=== PATIENT | female | born 2000 | race Caucasian/White ===

== ENCOUNTER 2019-02-19 18:51 | Emergency (ER) | payer OTHER ==
--- NOTE | 2019-02-19 18:58 | PDOC ---
Rapid Medical Evaluation Time Seen by Provider: 02/19/19 18:56 Medical Evaluation: 02/19/19 18:56 This patient had a brief in-person evaluation in triage cc: laceration to right hand sustained on a fence 1-3 hours ago. Fell while climbing a fence unknown tetanus status HPI: NAD unlabored breathing laceration to right palm orders: tetanus This patient will proceed to ED for further evaluation. Discharge Disposition - Diagnosis Laceration - Referrals - Patient Instructions - Post Discharge Activity
[2019-02-19 19:00] VITALS: BP 129/83; PULSE 89; TEMP 98.8; BMI 22.7
[2019-02-19] MEDS ORDERED: DIPHTH,PERTUSS(ACELL),TET 0.5 ML DISP.SYRIN IM ONE ×2 (20:15→20:16)
--- NOTE | 2019-02-19 20:39 | PDOC ---
History of Present Illness - General Chief Complaint: Laceration Stated Complaint: LACERATION/R/PALM Time Seen by Provider: 02/19/19 18:56 - History of Present Illness Initial Comments: 02/19/19 20:34 18-year-old female without comorbidities presents for evaluation of a laceration on the palmar aspect of her right hand while climbing a fence earlier today she is not current on tetanus Past History - Past Medical History Allergies/Adverse Reactions: Allergies Allergy/AdvReac Type Severity Reaction Status Date / Time No Known Allergies Allergy Verified 02/19/19 20:08 Home Medications: Ambulatory Orders NK [No Known Home Medication] 02/19/19 COPD: No - Suicide/Smoking/Psychosocial Hx Smoking History: Never smoked Information on smoking cessation initiated: No Hx Alcohol Use: No Drug/Substance Use Hx: No Review of Systems - Review of Systems Musculoskeletal: Yes: See HPI *Physical Exam - Vital Signs Last Vital Signs Temp Pulse Resp BP Pulse Ox 98.8 F 89 19 129/83 100 02/19/19 18:57 02/19/19 18:57 02/19/19 18:57 02/19/19 18:57 02/19/19 18:57 - Physical Exam Comments: 02/19/19 20:35 Proximally a 3 cm obliquely oriented linear laceration on the palmar aspect of the right hand exposing subcutaneous fat. There are no gross sensory motor deficits neurovascular intact ED Treatment Course - Medications Given in the ED: ED Medications Discontinued Medications Generic Name Dose Route Start Last Admin Trade Name Freq PRN Reason Stop Dose Admin Diphtheria/Tetanus/Acell Pertussis 0.5 ml 02/19/19 20:15 02/19/19 20:21 Boostrix - IM 02/19/19 20:16 0.5 ml .ONCE ONE Administration Medical Decision Making - Medical Decision Making 02/19/19 20:36 Aseptic technique the wound was anesthetized with 6 mL of 1% lidocaine without epinephrine. Explored to its base in a bloodless field no foreign body identified. Copiously irrigated with normal saline. Edges approximated with 4-0 nylon in a simple interrupted fashion. This was tolerated well a dry sterile dressing was placed post laceration repair instructions were given. *DC/Admit/Observation/Transfer Diagnosis at time of Disposition: Laceration - Referrals Referrals: Yuval Lee MD [Staff Physician] - - Patient Instructions Additional Instructions: Please keep the wound clean and dry and the dressing intact for the next 48 hours. After 48 hours remove the dressing and wash the area with soap and water. Leave the area open to air as much as possible if you must go out of the house or work please cover the area with a dry sterile dressing such as a Band- Aid. Do not apply any ointments or creams. Return to the emergency room should there be any increasing pain, redness, swelling, or drainage. These may be signs of infection. Suture removal in no less than 10 days Follow up with hand surgery in 1-2 days without fail for further evaluation and treatment options - Post Discharge Activity
== END 2019-02-19 20:42 | disposition home or self-care (01) ==
LOC: JERFT 18:51
PROC: 3E0234Z Introduction of Serum, Toxoid and Vaccine into Muscle, Percutaneous Approach (ICD-10-PCS; principal; 2019-02-19)
PROC: 0HQFXZZ Repair Right Hand Skin, External Approach (ICD-10-PCS; 2019-02-19)
DX: S61.411A Laceration without foreign body of right hand, initial encounter (principal); W26.8XXA Contact with other sharp object(s), not elsewhere classified, initial encounter; Y93.39 Activity, other involving climbing, rappelling and jumping off; Y92.89 Other specified places as the place of occurrence of the external cause; Y99.8 Other external cause status
CPT/HCPCS: 90715; 99282-25